=== PATIENT | male | born 2005 | race Caucasian/White ===

== ENCOUNTER 2023-09-04 18:09 | Emergency (ER) | payer OTHER, SELFPAY ==
[2023-09-04 18:10] VITALS: BP 148/82
--- NOTE | 2023-09-04 19:55 | ED.GENMED ---
History of Present Illness
General
Chief Complaint: Skin Problem
Time Seen by Provider: 09/04/23 19:45
Travel History
Have you had any contact with someone who has COVID-19?: No
Do you have any symptoms of coronavirus? Fever > 100 degrees, chills, cough, shortness of breath, sore throat, loss of taste or smell, muscle aches, or headache?: No
History of Present Illness
History of Present Illness:
17-year-old male presents emergency department for evaluation of a 'cyst' to the superior gluteal cleft with active purulent and bloody discharge for the past 3 days. He was started on doxycycline 60 mg primary care physician but has developed
fevers over the past 24 hours. Denies any nausea or vomiting. No prior history of this
Past History
Past History
ED Past Medical History: None
ED Past Surgical History: Orthopedic (Right foot)
Social History
Tobacco: Non-smoker
Alcohol: None
Drug: None
Personal: Single
Living: with family
Employment: Student
Family History
Family History: Other (Noncontributory)
Review of Systems
Review of Systems
Allergies reviewed?: Yes
All Other Systems: ROS reviewed and negative except as documented in HPI and ROS
Phy Exam
Physical Exam
Physical Exam:
GEN: Well appearing, NAD, WDWN
HEENT: Oral mucosa moist, no scleral icterus
Cardiac: Regular rate and rhythm, no murmurs
Lung: No respiratory distress, no tachypnea
MSK: No gross deformity or injuries
Skin: Good color, no pallor or jaundice; large 4 cm x 2 cm pilonidal abscess with moderate induration and active purulent discharge
Neuro: AO x3, moves all extremities freely
Psych: Calm, cooperative
Course
Orders/Labs/Results
Orders:
Orders
09/04/23 20:23
Amoxicillin 875 mg/Clav 125 mg [Augmentin 875 mg/125 mg] 1 tablet PO NOW STA
Vital Signs
Initial and Last Documented VS:
Initial Vital Signs
Temp Pulse Resp BP Pulse Ox
99.9 F 96 20 148/82 99
09/04/23 18:10 09/04/23 18:10 09/04/23 18:10 09/04/23 18:10 09/04/23 18:10
Last Documented Vital Signs
Temp Pulse Resp BP Pulse Ox
99.9 F 96 20 148/82 99
09/04/23 18:10 09/04/23 18:10 09/04/23 18:10 09/04/23 18:10 09/04/23 18:10
Procedures
Incision/Drainage/Joint Aspiration
Pilonidal abscess:
Anethesia: 1% Lidocaine with Epi
Type of procedure: incise
Nature of site: abscess
Description of abscess: greater than 3cm
Loculations broken up: Yes
How much fluid was obtained?: large amount
Fluid description: purulent and bloody
Treatment: left open for drainage
MDM/Problems Addressed
MDM/Problems Addressed:
Bedside I&D performed. Will switch the patient antibiotics to amoxicillin/clavulanate. Exam does not show any intrusion toward the anal verge thus no indication for CT scan. He did develop fevers however I suspect this will improve with
appropriate antibiotic therapy after incision and drainage
*Critical Care Note
Total Time (30-74mins, 75-104mins- exclusive of procedures): Not Applicable
ED Attending Note
-
Portions of this chart may have been created with voice recognition software.� Occasional wrong word or��sound alike� substitutions may have occurred due to the inherent limitations of voice recognition software.
Discharge Plan
Departure
Patient Disposition: Home (Routine Discharge)
Date of Disposition: 09/04/23
Time of Disposition: 20:23
Patient with high blood pressure during this ER visit?: No
Discharge Problem:
Pilonidal abscess
Instructions: Pilonidal Cyst (DC)
Prescriptions:
New
amoxicillin-pot clavulanate 875-125 mg tablet
1 tab PO BID Qty: 20 0RF
No Action
amoxicillin-pot clavulanate 875-125 mg tablet
1 tab PO BID Qty: 14 0RF
Referrals:
Roc Perez MD [Active] -
Interventions
Interventions:
*Risk Screen - Suicide Last Done: 09/04/23 18:10
*General Assessment Last Done: 09/04/23 18:10
*Neglect/Abuse Screening Last Done: 09/04/23 18:10
ED- Fall Risk Assessment Last Done: 09/04/23 20:51
*Nursing Disposition Last Done: 09/04/23 20:51
ED-Skin Assessment Last Done: 09/04/23 19:30
Discharge Date and Time
Discharge Date/Time: 09/04/23 20:52
Print Language: NEPALI
[2023-09-04] MEDS: AUGMENTIN 875 MG/125 MG 1 TABLET PO (20:29)
== END 2023-09-04 20:52 | disposition home or self-care (01) ==
LOC: EMR 18:09
PROVIDERS: EMERGENCY PHYSICIAN Emergency Medicine
DX: L05.01 Pilonidal cyst with abscess (principal); R50.9 Fever, unspecified
CPT/HCPCS: 10080; 99283